=== PATIENT | male | born 1940 | race Caucasian/White ===

== ENCOUNTER 2019-08-04 10:19 | Emergency (ER) | payer MEDICARE ==
--- OUTSIDE RECORDS SUMMARY | 2019-08-04 10:34 | XMS REPORT | Continuity of Care Document ---
:1940 External Reference #:[id number] Author Name Sara Ewing MD (transmitted by agent of provider Yani Argueta) Address [address], [address] [place] [address] Care Team Providers Name Role Phone Chelsea Altamirano FNP - Nurse Care Team Information Director Translation [phone] Practitioner Problems Active Problems Provider Date Acute subendocardial infarction Iban Floyd MD, [facility], Onset: 01/17/2016 [facility] Dyspnea Sara Ewing MD Onset: 02/16/2016 Disturbance in sleep behavior Sara Ewing MD Onset: 02/16/2016 Other nonspecific abnormal finding of Sara Ewing MD Onset: 02/16/2016 lung field Post-inflammatory pulmonary fibrosis Sara Ewing MD Onset: 04/18/2016 Obstructive sleep apnea syndrome Sara Ewing MD Onset: 04/18/2016 Old myocardial infarction Iban Floyd MD, [facility], Onset: 01/28/2018 [facility] Social History Type Date Description Comments Sex Unknown Tobacco Use Start: Unknown End: Former Cigarette Smoker Unknown Smoking Status Reviewed: 07/08/19 Former Cigarette Smoker ETOH Use Rarely consumes alcohol Tobacco Use Start: Unknown End: Patient is a former quit in 2000, Unknown smoker started smoking around age 17yrs about 1PPD Recreational Drug Use Denies Drug Use Exercise Type/Frequency Exercises regularly Work display department manager Allergies, Adverse Reactions, Alerts Description No Known Drug Allergies Medications Active Medications SIG Qnty Indications Ordering Date Provider Prednisone 1 by mouth every 30tabs J84.10 Sara Ewing, 05/07/2019 10mg day Tablets Oxygen Concentrator Pls provide pt with Sara Ewing, 03/18/2019 back up battery for poc. His current battery doesnot last Oxymask Please provide pt J44.9 Sara Kaylin, 10/25/2018 with oxymask to be MD used with o2 source Ofev take 1 capsule by 60caps J84.10 Sara Ewing, 03/21/2018 100mg Capsules mouth twice daily MD 12 hours apart with food. Sodium Chloride use one vial in 240units J47.9 Sara Ewing, 03/21/2018 3% nebulizer every 12 MD Nebulizer hours Oxygen please use o2 at 1units R09.02 Sara Ewing, 03/21/2018 Misc 3l/min during MD exertion, pls provide pt with portable o2 concentrator Spiriva Respimat 1 puff inhaled 12gm J44.9 Lona Virk, 02/11/2018 daily N.P. 2.5mcg/Act Aerosol Ventolin HFA inhale two puffs by 54gm Other Ordering 02/11/2018 mouth every 6 hours Provider 108(90Base) mcg/Act Aerosol Mucinex take 1 tab by mouth 180tabs J44.9 Lona Virk, 02/11/2018 600mg Tablets twice a day N.P. ER 12HR Fluticasone 2 sprays each 32gm G47.33 Sara Ewing, 05/30/2016 Propionate nostril prn 50mcg/Act Suspension Vortex Valved use as instructed 1units Sara Ewing, 05/02/2016 Holding Chamber MD Device Symbicort 2 puff twice a day 20.7gm Sara Ewing, 05/02/2016 80-4.5mcg/Act Aerosol Flutter use as instructed 1[facility] J84.10 Sara Ewing, 04/18/2016 Device twice a day Nitrostat one sl q5min up to Unknown 0.4mg 3 doses as needed Tablets Sub Aspirin 1 by mouth every Unknown 81mg Tablets day Cozaar 1 by mouth every Unknown 50mg Tablets day Omeprazole 1 by mouth every Unknown 20mg day prn Capsules DR Levothyroxine Sodium 1 by mouth every Unknown day 112mcg Tablets Zyrtec Allergy 1 by mouth every Unknown 10mg day Tablets Atorvastatin Calcium 1 by mouth every 90tabs Qutaybeh S. day Negrito Bartlett 80mg Tablets Metoprolol Succinate 1 by mouth every 90tabs Iban T. ER day MD Mariel, 50mg Tablets ER FAC, [facility] 24HR Aleve 1 by mouth twice a Unknown 220mg Tablets day as needed Medications Administered in Office Medication SIG Qnty Indications Ordering Provider Date Inj, Regadenoson, 0.1 MG Nicanor oSto, DO [facility] 02/09/2016 Injection Technetium TC 99M Nicanor Soto, DO [facility] 02/09/2016 Tetrofosmin, Per Unit Dose Up To 40 Millicuries Injection Immunizations Description No Information Available Vital Signs Date Vital Result Comment 07/08/2019 1:25pm Height 72 inches 6'0" Weight 184.00 lb Heart Rate 82 /min BP Systolic Sitting 122 mmHg BP Diastolic Sitting 60 mmHg Body Temperature 98.0 F O2 % BldC Oximetry 98 % BMI (Body Mass Index) 25.0 kg/m2 05/07/2019 10:54am Height 72 inches 6'0" Weight 186.00 lb Heart Rate 84 /min BP Systolic Sitting 100 mmHg Lue regular cuff BP Diastolic Sitting 60 mmHg Lue regular cuff Respiratory Rate 12 /min O2 % BldC Oximetry 85 % BMI (Body Mass Index) 25.2 kg/m2 Results Test Date Facility Test Result H/L Range Note Lupus Anticoagulant 05/07/2019 [facility] Prothrombin 11.6 sec [address] Time([place]) [place] [address] [phone] Lac Inr 1.1 Lac Aptt 29 sec 26 - 36 Lac DRVVT Screen Ratio 0.9 ratio 0.0 - 1.1 Lupus Anticoagulant Interpreta See Comment 2 CBC Auto 05/07/2019 [facility] White Blood 10.5 10^3/uL Normal 3.5-10.[address] [place] [address] [phone] Red Blood Count 5.59 10^6/uL High 4.18-5.48 Hemoglobin 17.0 g/dL Normal 14.0-18.0 Hematocrit 50 % Normal 42-52 Mean Corpuscular Volume 89 fL Normal 80-94 Mean Corpuscular Hemoglobin 30 pg Normal 27-31 Mean Corpuscular HGB Conc 34 g/dL Normal 31-36 Red Cell Distribution Width 15 % Normal 10-15 Abs Neutrophils 7.4 10^3/uL Normal 1.5-7.7 Abs Lymphocytes 1.8 10^3/uL Normal 1.0-4.8 Abs Monocytes 0.8 10^3/uL Normal 0-0.8 Abs Eosinophils 0.4 10^3/uL Normal 0-0.6 Abs Basophils 0.0 10^3/uL Normal 0-0.2 Abs Nucleated RBC 0.0 10^3/uL Granulocyte % 71.0 % Lymphocyte % 17.3 % Monocyte % 7.8 % Eosinophil % 3.5 % Basophil % 0.4 % Nucleated Red Blood Cells % 0.1 Platelet Count 115 10^3/uL Low 150-450 Mean Platelet Volume 9.6 fL Normal 7.4-10.4 Neutrophil Cytoplasmic 05/07/2019 [facility] C-Anca Negative Negative AB [address] [place] [address] [phone] P-Anca Negative Negative 3 Laboratory test 05/07/2019 [facility] Anti Nuclear 1.1 U Abnormal 4 finding [address] [facility] [place] [address] [phone] Cyclic Citrullinated Pep Igg <15.6 U 5 C Reactive Protein 2.32 mg/L Normal <8.01 Rheumatoid Factor 13 IU/mL Normal <15 Order 05/07/2019 [employer] In-House 6 Minute Walk <pending> Lipid Panel - JFM 03/04/2019 [facility] Creatine 36 U/L Normal 10-223 6 [address] [facility] Kinase(CK) [place] [address] [phone] Comp Metabolic 03/04/2019 [facility] Sodium 140 mmol/L Normal 135-145 Panel [address] [place] [address] [phone] Potassium 3.9 mmol/L Normal 3.5-5.0 Chloride 106 mmol/L Normal 101-111 Co2 Carbon Dioxide 28 mmol/L Normal 22-32 Anion Gap 6 mmol/L Normal 2-11 Glucose 88 mg/dL Normal 70-100 Blood Urea Nitrogen 10 mg/dL Normal 6-24 Creatinine 0.83 mg/dL Normal 0.67-1.17 BUN/Creatinine Ratio 12.0 Normal 8-20 Calcium 9.1 mg/dL Normal 8.6-10.3 Total Protein 6.4 g/dL Normal 6.4-8.9 Albumin 3.8 g/dL Normal 3.2-5.2 Globulin 2.6 g/dL Normal 2-4 Albumin/Globulin Ratio 1.5 Normal 1-3 Total Bilirubin 1.80 mg/dL High 0.2-1.0 Alkaline Phosphatase 71 U/L Normal 34-104 Alt 26 U/L Normal 7-52 Ast 20 U/L Normal 13-39 Egfr Non- 89.8 >60 Egfr 108.7 >60 7 Lipid Profile 03/04/2019 [facility] Triglycerides 53 mg/dL 8 (Trig/Chol/HDL) [address] [place] [address] [phone] Cholesterol 121 mg/dL 9 HDL Cholesterol 42.1 mg/dL 10 LDL Cholesterol 68 mg/dL 11 1 REFERENCE VALUE 10.3 - 12.8 2 No evidence of a lupus-like anticoagulant based on results of Prothrombin Time (PT), Activated Partial Thromboplastin Time (APTT), and Dilute Russells Viper Venom Time (DRVVT). Interpretation not reviewed by physician. Test Performed by: [facility] - [address] [address] 3 Negative for cANCA and pANCA patterns by immunofluorescence. ADDITIONAL INFORMATION This test was developed and its performance characteristics determined by [facility] in a manner consistent with CLIA requirements. This test has not been cleared or approved by the U.S. Food and Drug Administration. Test Performed by: [facility] [employer] [facility] [address] [place] [address] 4 Interpretation: Weak Positive (1.1-2.9) REFERENCE VALUE <=1.0 (Negative) Test Performed by: [facility] [employer] [facility] [address] [place] [address] 5 REFERENCE VALUE <20.0 (Negative) Test Performed by: [facility] - [facility] [address] [place] [address] 6 FASTING 7 Because ethnic data is not always readily available, this report includes an eGFR for both -Americans and non- Americans. The National Kidney Disease Education Program (NKDEP) does not endorse the use of the MDRD equation for patients that are not between the ages of 18 and 70, are , have extremes of body size, muscle mass, or nutritional status, or are non- or non-. According to the National Kidney Foundation, irrespective of diagnosis, the stage of the disease is based on the level of kidney function: Stage Description GFR(mL/min/1.73 m(2)) 1 Kidney damage with normal or decreased GFR 90 2 Kidney damage with mild decrease in GFR 60-89 3 Moderate decrease in GFR 30-59 4 Severe decrease in GFR 15-29 5 Kidney failure <15 (or dialysis) 8 Desirable: <150 Borderline High: 150-199 High: 200-499 Very High: >500 9 Desirable: <200 Borderline High: 200-239 High: >239 10 Low: <40 Desirable: 40-60 High: >60 11 Desirable: <100 Near Optimal: 100-129 Borderline High: 130-159 High: 160-189 Very High: >189 Procedures Date Code Description Status 05/07/2019 16268 [facility] Measurement Heart Rate, Completed Oximetry 04/10/2019 69392 Diffusing Capacity Completed 04/10/2019 24818 Spirometry Incl Graphic Record Completed 03/03/2019 08202 Holter Monitor Review (24 hr)dr levy & interp only Completed 02/20/2019 97931 ECG Monitor/Recording W/Visual Superimposition Scanning Completed 02/17/2019 00486 ECHO Transthoracic, Real-Time 2D With Doppler And Color Completed Flow 02/17/2019 50892 ECHO Transthoracic, Real-Time 2D With Doppler And Color Completed Flow 02/12/2019 57686 Treadmill Interp/Report Only Completed 02/12/2019 19245 Stress Test Supervsn W/Out I/R Completed 02/03/2019 86483 EKG Tracing & Interpretation Completed Medical Devices Description No Information Available Encounters Type Date Location Provider Dx Diagnosis Office Visit 07/08/2019 [facility]ology [facility] Sara Kaylin, J84.10 Pulmonary 1:45p [facility] vince Cma unspecified J44.9 Chronic obstructive pulmonary disease, unspecified G47.33 Obstructive sleep apnea (adult) (pediatric) R09.02 Hypoxemia Office Visit 05/07/2019 11:15a Pulmonology And Sara R06.02 Shortness of [facility] Kaylin breath [employer] J84.10 Pulmonary fibrosis, unspecified J44.9 Chronic obstructive pulmonary disease, unspecified G47.33 Obstructive sleep apnea (adult) (pediatric) R09.02 Hypoxemia Office Visit 02/28/2019 1:00p [facility] Bing Alvarez J44.1 Chronic SHORTS SIFTER obstructive pulmonary disease w (acute) exacerbation 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 obstructive Hospitalists pulmonary disease w (acute) exacerbation J18.9 Pneumonia, unspecified organism J84.10 Pulmonary fibrosis, unspecified I25.10 Athscl heart disease of [place] coronary artery w/o ang pctrs E03.9 Hypothyroidism, unspecified [facility] Visit [facility] Chronic Assoc,sheryl Martinez M.D. obstructive Hospitalists pulmonary disease w (acute) exacerbation J84.10 Pulmonary fibrosis, unspecified I25.10 Athscl heart disease of [place] coronary artery w/o ang pctrs E03.9 Hypothyroidism, unspecified Office Visit 02/21/2019 [facility] Amanda J18.9 Pneumonia, 9:54a Assoc,pc Neela, SHORTS SIFTER unspecified Hospitalists organism J96.00 Acute respiratory failure, unsp w hypoxia or hypercapnia J44.9 Chronic obstructive pulmonary disease, unspecified J84.10 Pulmonary fibrosis, unspecified R74.0 Nonspec elev of levels of transamns & lactic acid dehydrgnse I25.10 Athscl heart disease of [place] coronary artery w/o ang pctrs I10 Essential (primary) hypertension E03.9 Hypothyroidism, unspecified K21.9 Gastro-esophageal reflux disease without esophagitis Office Visit 02/03/2019 2:40p Carson Carter J44.9 Chronic Cardiology Negrito Bartlett obstructive pulmonary disease, unspecified G47.33 Obstructive sleep apnea (adult) (pediatric) R06.02 Shortness of breath I25.2 Old myocardial infarction E78.5 Hyperlipidemia, unspecified R07.9 Chest pain, unspecified I77.819 Aortic ectasia, unspecified site R42 Dizziness and giddiness I25.10 Athscl heart disease of [place] coronary artery w/o ang pctrs I10 Essential (primary) hypertension R94.31 Abnormal electrocardiogram [ECG] [EKG] Assessments Date Code Description Provider 07/08/2019 J84.10 Pulmonary fibrosis, unspecified Sara Ewing MD 07/08/2019 J44.9 Chronic obstructive pulmonary disease, Sara Ewing MD unspecified 07/08/2019 G47.33 Obstructive sleep apnea (adult) Sara Ewing MD (pediatric) 07/08/2019 R09.02 Hypoxemia Sara Ewing MD 05/07/2019 R06.02 Shortness of breath Sara Ewing MD 05/07/2019 J84.10 Pulmonary fibrosis, unspecified Sara Ewing MD 05/07/2019 J44.9 Chronic obstructive pulmonary disease, Sara Ewing MD unspecified 05/07/2019 G47.33 Obstructive sleep apnea (adult) Sara Ewing MD (pediatric) 05/07/2019 R09.02 Hypoxemia Sara Ewing MD 04/10/2019 J44.9 Chronic obstructive pulmonary disease, Sara Ewing MD unspecified 03/03/2019 R42 Dizziness and giddiness Mynor Lemons M.D. 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 w (acute) exacerbation 02/23/2019 J18.9 Pneumonia, unspecified organism Stevie Martinez M.D. 02/23/2019 J84.10 Pulmonary fibrosis, unspecified Stevie Martinez M.D. 02/23/2019 I25.10 Athscl heart disease of [place] Stevie Martinez M.D. coronary artery w/o ang pctrs 02/23/2019 E03.9 Hypothyroidism, unspecjaki Martinez M.D. 02/22/2019 J44.1 Chronic obstructive pulmonary disease Stevie Martinez M.D. w (acute) exacerbation 02/22/2019 J84.10 Pulmonary fibrosis, jenny Martinez M.D. 02/22/2019 I25.10 Athscl heart disease of [place] Stevie Martinez M.D. coronary artery w/o ang pctrs 02/22/2019 E03.9 Hypothyroidism, unspecjaki Martinez M.D. 02/21/2019 J18.9 Pneumonia, unspecified organism Amanda Keita, SHORTS SIFTER 02/21/2019 J96.00 Acute respiratory failure, unsp w Amanda Keita NP hypoxia or hypercapnia 02/21/2019 J44.9 Chronic obstructive pulmonary disease, Amanda Keita, [place] [employer] unspecified 02/21/2019 J84.10 Pulmonary fibrosis, unspecified Amanda Keita, [employer] 02/21/2019 R74.0 Nonspec elev of levels of transamns & Amanda Keita NP lactic acid dehydrgnse 02/21/2019 I25.10 Athscl heart disease of [place] Amanda Keita, THERESE coronary artery w/o ang pctrs 02/21/2019 I10 Essential (primary) hypertension Amanda Keita NP 02/21/2019 E03.9 Hypothyroidism, unspecified Amanda Keita, SHORTS SIFTER 02/21/2019 K21.9 Gastro-esophageal reflux disease Amanda Keita, SHORTS [employer]IFTER without esophagitis 02/20/2019 R42 Dizziness and giddiness Nurse Visit IC 02/20/2019 R42 Dizziness and giddiness Jada Bartlett M.D. 02/17/2019 R06.02 Shortness of breath Jada Bartlett M.D. 02/17/2019 R06.02 Shortness of breath [facility] 02/17/2019 G47.33 Obstructive sleep apnea (adult) [facility] Schedule (pediatric) 02/17/2019 I25.2 Old myocardial infarction [facility] Schedule 02/17/2019 R07.9 Chest pain, unspecified [facility] Schedule 02/12/2019 R06.02 Shortness of breath Jada Bartlett M.D. 02/03/2019 J44.9 Chronic obstructive pulmonary disease, Jada Bartlett M.D. unspecified 02/03/2019 G47.33 Obstructive sleep apnea (adult) Jada Bartlett M.D. (pediatric) 02/03/2019 R06.02 Shortness of breath Jada Bartlett M.D. 02/03/2019 I25.2 Old myocardial infarction Jada Bartlett M.D. 02/03/2019 E78.5 Hyperlipidemia, unspecified Jada Bartlett M.D. 02/03/2019 R07.9 Chest pain, unspecified Jada Bartlett M.D. 02/03/2019 I77.819 Aortic ectasia, unspecified site Jada Bartlett M.D. 02/03/2019 R42 Dizziness and giddiness Jada Bartlett M.D. 02/03/2019 I25.10 Atherosclerotic heart disease of Jada Bartlett M.D. [place] coronary artery with 02/03/2019 I10 Essential (primary) hypertension Jada Bartlett M.D. 02/03/2019 R94.31 Abnormal electrocardiogram [ECG] [EKG] Jada Bartlett M.D. Plan of Treatment Future Appointment(s):09/09/2019 1:45 pm - Sara Ewing MD at [facility]08/15/2019 11:00 am - Andrew Torre M.D. at [facility]07/08/2019 - Sara Ewing MDJ84.10 Pulmonary fibrosis, unspecifiedFollow up:2 uopikjW93.9 Chronic obstructive pulmonary disease, mhqezrhekhiM27.33 Obstructive sleep apnea (adult) (pediatric)R09.02 Hypoxemia Functional Status Description No Information Available Mental Status Description No Information Available Referrals Refer to Reason for Referral Status Appt Date Andrew Torre MD Scheduled 08/15/2019 [address] [place], [place] [address] [phone]
--- NOTE | 2019-08-04 11:00 | ED ---
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 Patient additionally complains of worsening shortness of breath. Patient states he is able to ambulate but not far distances due to shortness of breath. Patient denies nausea. Patient reports congestion and productive cough. Patient additionally complains of light headedness x3-4 days. The patient rates the pain 0/10 in severity. Symptoms aggravated by sitting up, moving around, lying down. Symptoms alleviated by nothing. Patient states he has hx COPD for which he is on 4 L O2 and hx vertigo, last time being a couple years ago which was relieved with medication per patient. - History Of Current Complaint Chief Complaint: EDShortnessOfBreath Stated Complaint: SHORT OF BREATH Time Seen by Provider: 08/04/19 10:47 Hx Obtained From: Patient Onset/Duration: Still Present Timing: Constant Severity Currently: None Aggravating Factor(s): Other - sitting up, moving around, lying down Alleviating Factor(s): Nothing Associated Signs And Symptoms: Positive: Negative - nausea, Other: - Shortness of breath, able to ambulate, congestion, productive cough, light headedness - Allergies/Home Medications Allergies/Adverse Reactions: Allergies Allergy/AdvReac Type Severity Reaction Status Date / Time No Known Allergies Allergy Verified 08/04/19 10:26 Home Medications: Home Medications Cetirizine* [ZyrTEC 10 MG TAB*] 10 mg PO DAILY 08/04/19 [History Confirmed 08/04] Ergocalciferol (Vitamin D2) [Vitamin D2] 50,000 unit PO WEEKLY 08/04/19 [ History Confirmed 08/04/19] Naproxen Sodium [Aleve] 220 mg PO BID PRN 08/04/19 [History Confirmed 08/04/19] PMH/Surg Hx/FS Hx/Imm Hx Endocrine/Hematology History: Reports: Hx Anticoagulant Therapy - plavix, Hx Systemic Lupus Erythematosus, Hx Thyroid Disease, Other Endocrine/Hematological Disorders Denies: Hx Blood Disorders, Hx Blood Transfusions, Hx Bone Marrow Disease, Hx Diabetes, Hx Sickle Cell Disease, Hx Anemia, Hx Unexplained Bleeding Cardiovascular History: Reports: Hx Angina, Hx Cardiomegaly, Hx Coronary Artery Disease, Hx Hypercholesterolemia, Hx Hypertension, Hx Myocardial Infarction, Hx Rheumatic Fever, Hx Syncope - "virtigo" Denies: Hx Aneurysm, Hx Angioplasty, Hx Auto Implanted Cardiovert Defib, Hx Cardiac Arrest, Hx Congenital Heart Disease, Hx Congestive Heart Failure, Hx Hypotension, Hx Pacemaker/ICD, Hx Peripheral Vascular Disease, Hx Valvular Heart Disease, Other Cardiovascular Problems/Disorders Respiratory History: Reports: Hx Asthma, Hx Chronic Obstructive Pulmonary Disease (COPD), Hx Pneumonia, Hx Pulmonary Edema, Hx Seasonal Allergies, Other Respiratory Problems/Disorders - pulmonary fibrosis Denies: Hx Sleep Apnea GI History: Reports: Hx Gastroesophageal Reflux Disease, Hx Obstructive Bowel Denies: Hx Cirrhosis, Hx Crohn's Disease, Hx Diverticulosis, Hx Gall Bladder Disease, Hx Gastrointestinal Bleed, Hx Hiatal Hernia, Hx Irritable Bowel, Hx Jaundice, Hx Ileostomy, Hx Pyloric Stenosis, Hx Ulcer, Other GI Disorders History: Denies: Hx Acute Renal Failure, Hx Benign Prostatic Hyperplasia, Hx Chronic Renal Failure, Hx Dialysis, Hx Kidney Infection, Hx Kidney Stones Musculoskeletal History: Reports: Hx Arthritis, Hx Back Problems, Hx Bursitis Denies: Hx Congenital Bone Abnormalities, Hx Fibromyalgia, Hx Gout, Hx Orthopedic Injury, Hx Osteoporosis, Hx Scoliosis, Hx Tendonitis, Other Musculoskeletal History Sensory History: Reports: Hx Contacts or Glasses, Hx Deafness, Hx Hearing Aid, Hx Hearing Problem - can't hear TV Denies: Hx Cataracts, Hx Eye Injury, Hx Eye Prosthesis, Hx Glaucoma, Hx Legally Blind, Hx Macular Degeneration, Hx Vision Problem, Other Sensory Impairments Opthamlomology History: Reports: Hx Contacts or Glasses Denies: Hx Cataracts, Hx Eye Injury, Hx Eye Prosthesis, Hx Glaucoma, Hx Legally Blind, Hx Macular Degeneration, Hx Vision Problem, Other Sensory Impairments Neurological History: Denies: Hx Dementia, Hx Transient Ischemic Attacks (TIA) Psychiatric History: Reports: Hx Depression Denies: Hx Anxiety, Hx Attention Deficit Hyperactivity Disorder, Hx Eating Disorder, Hx Panic Disorder, Hx Post Traumatic Stress Disorder, Hx Inpatient Treatment, Hx Community Mental Health Tx, Hx Schizophrenia, Hx Bipolar Disorder , Hx Suicide Attempt, Hx of Violent Episodes Against Others, Hx Substance Abuse , Other Psychiatric Issues/Disorders - Cancer History Hx Chemotherapy: No Hx Radiation Therapy: No Hx Palliative Cancer Treatment: No - Surgical History Surgery Procedure, Year, and Place: appy,hemoroidectomy Hx Anesthesia Reactions: No Infectious Disease History: No Infectious Disease History: Denies: Hx Clostridium Difficile, Hx Hepatitis, Hx of Known/Suspected MRSA, Hx Shingles, Hx Tuberculosis, Hx Known/Suspected VRE, Hx Known/Suspected VRSA, Traveled Outside the [place] in Last 30 Days - Family History Known Family History: Positive: Cardiac Disease - [place] - father 56 y/o - Social History Alcohol Use: Rare Alcohol Amount: maybe once a month if that Hx Substance Use: No Substance Use Type: Reports: None Hx Tobacco Use: Yes Smoking Status (MU): Former Smoker Review of Systems Positive: Other - congestion Positive: Shortness Of Breath, Cough Negative: Nausea Positive: Other - Able to ambulate Neurological: Other - Dizziness, light headedness All Other Systems Reviewed And Are Negative: Yes Physical Exam - Summary Physical Exam Summary: Appearance: The patient is well-nourished in no acute distress and in no acute pain. Skin: The skin is warm and dry, and skin color reflects adequate perfusion. HEENT: The head is normocephalic and atraumatic. The pupils are equal and reactive. The conjunctivae are clear and without drainage. Nares are patent and without drainage. Mouth reveals moist mucous membranes, and the throat is without erythema and exudate. The external ears are intact. The ear canals are patent and without drainage. The tympanic membranes are intact. Neck: The neck is supple with full range of motion and non-tender. There are no carotid bruits. There is no neck vein distension. Respiratory: Chest is non-tender. There are crackles in the bilateral bases Cardiovascular: Heart is regular rate and rhythm. There is no murmur or rub auscultated. There is no peripheral edema and pulses are symmetrical and equal. Abdomen: The abdomen is soft and non-tender. There are normal bowel sounds heard in all four quadrants and there is no organomegaly palpated. Musculoskeletal: There is no back tenderness noted. Extremities are non-tender with full range of motion. There is good capillary refill. There is no peripheral edema or calf tenderness elicited. Neurological: Patient is alert and oriented to person, place and time. The patient has symmetrical motor strength in all four extremities. Cranial nerves are grossly intact. Deep tendon reflexes are symmetrical and equal in all four extremities. Psychiatric: The patient has an appropriate affect and does not exhibit any anxiety or depression. GCS: 15 Triage Information Reviewed: Yes Vital Signs On Initial Exam: Initial Vitals Temp Pulse Resp BP Pulse Ox 97.3 F 70 20 138/75 92 08/04/19 10:23 08/04/19 10:23 08/04/19 10:23 08/04/19 10:23 08/04/19 10:23 Vital Signs Reviewed: Yes Diagnostics - Vital Signs Vital Signs Temp Pulse Resp BP Pulse Ox 08/04/19 10:23 97.3 F 70 20 138/75 92 - Laboratory Result Diagrams: 08/04/19 11:33 08/04/19 11:33 Lab Statement: Any lab studies that have been ordered have been reviewed, and results considered in the medical decision making process. - Radiology CXR Radiology Interpretation Completed By: Radiologist Summary of Radiographic Findings: STABLE PULMONARY FIBROTIC CHANGES. NO ACTIVE CARDIOPULMONARY DISEASE. ED physician has reviewed this report. - CT CT Brain CT Interpretation Completed By: Radiologist Summary of CT Findings: NO EVIDENCE FOR ACUTE INTRACRANIAL ABNORMALITY. ED physician has reviewed this report. - EKG 1119 Cardiac Rate: Bradycardia - 52 BPM EKG Rhythm: Sinus Bradycardia Re-Evaluation - Re-Evaluation First Eval Re-Evaluation Time: 15:50 Comment: Dr. Gonzales in ED to see patient Dizzy Course/Dx - Course Course Of Treatment: Mr. Wade presented complaining of some mild dizziness for about the past week. Also some congestion and mild cough. He had some shortness of breath when he walks too far. Is not that unusual for him however as he has some COPD. He was nontoxic in appearance is stable vitals. His neurological exam was unremarkable for me. CT brain, EKG, chest x-ray and labs are unremarkable. Dr. Gonzales saw him in consultation because of dizziness and felt that it was likely peripheral. I think he is got a viral syndrome and that he is nontoxic at this point. He was given a liter of fluid here and did fill improved after that. - Diagnoses Provider Diagnoses: Viral syndrome - Provider Notifications Discussed Care Of Patient With: Alvino Gonzales Time Discussed With Above Provider: 13:43 Instructed by Provider To: Other - Dr. Gonzales, neurology, agrees to come see patient in ED. He recommends giving IV fluids and discharging patient. Discharge ED - Sign-Out/Discharge Documenting (check all that apply): Patient Departure - Discharge Patient Received Moderate/Deep Sedation with Procedure: No - Discharge Plan Condition: Stable Disposition: HOME Patient Education Materials: Viral Syndrome (ED) Referrals: Chelsea Jones RN [Primary Care Provider] - 2 Days Additional Instructions: Follow up with your primary care provider in 2-3 days. Return to the Emergency Department for new or worsening symptoms. - Billing Disposition and Condition Condition: STABLE Disposition: Home - Attestation Statements Document Initiated by Todde: Yes Documenting Scribe: Anna Gant Provider For Whom Emaibe is Documenting (Include Credential): Leodan Parikh MD Scribe Attestation: IAnna, scribed for Leodan Parikh MD on 08/04/19 at 2004. Scribe Documentation Reviewed: Yes Provider Attestation: The documentation as recorded by the Anna hughes accurately reflects the service I personally performed and the decisions made by me, Leodan Parikh MD Status of Scribe Document: Viewed
[2019-08-04 11:43] LABS: ABS Basophils 0.1 10^3/ul (0-0.2); ABS Eosinophils 0.2 10^3/ul (0-0.6); ABS Lymphocytes 1.7 10^3/ul (1.0-4.8); ABS Monocytes 0.7 10^3/ul (0-0.8); ABS Neutrophils 5.7 10^3/ul (1.5-7.7); Hematocrit 48 % (42-52); Hemoglobin 16.5 g/dL (14.0-18.0); Lymphocyte % 20.2 %; Mean Corpuscular HGB Conc 34 g/dL (31-36); Mean Corpuscular Hemoglobin 31 pg (27-31); Mean Corpuscular Volume 89 fL (80-94); Mean Platelet Volume 8.6 fL (7.4-10.4); Nucleated Red Blood Cells % 0.1; Platelet Count 116 10^3/uL (150-450); Red Blood Count 5.41 10^6 /uL (4.18-5.48); Red Cell Distribution Width 15 % (10-15); White Blood Count 8.4 10^3/uL (3.5-10.8)
[2019-08-04 11:57] LABS: Albumin 3.7 g/dL (3.2-5.2); Calcium 9.2 mg/dL (8.6-10.3); Potassium 4.2 mmol/L (3.5-5.0); Total Bilirubin 1.6 mg/dL (0.2-1.0)
[2019-08-04 12:03] LABS: Albumin/Globulin Ratio 1.6 (1-3); BUN/Creatinine Ratio 13.8 (8-20); C Reactive Protein 4.63 mg/L (<8.01); EGFR Non-African American 85.1 (>60); Globulin 2.3 g/dL (2-4); INR 0.98 (0.82-1.09)
[2019-08-04] MEDS ORDERED: NS 0.9% 1000 ML** 1,000 ML IV ONE (16:04)
--- NOTE | 2019-08-04 18:15 | CONS ---
NEUROLOGY CONSULTATION NOTE: DATE OF CONSULT: 08/04/19 - EMERGENCY DEPT CONSULTING PROVIDER: Leodan Parikh MD REASON FOR CONSULT: Dizziness. CHIEF COMPLAINT: Dizziness. HISTORY OF PRESENT ILLNESS: Mr. Mike Wade is a 78-year-old man with history of asthma/COPD, pulmonary fibrosis, on 4 L nasal cannula 24 hours, who presented with intermittent episodes of both vertigo and lightheadedness. The patient stated that over the last 2 weeks, he has had 2 episodes where he moves his head towards one side and develops a 10-second interval of dizziness. The dizziness was described as vertigo. Again, the vertigo would brent spontaneously. When he stations his head to primary gaze, the symptoms resolve. He has chronic hearing loss and has bilateral hearing aids. He denied any tinnitus. He has been feeling ill the last few weeks with upper respiratory tract infection, rhinorrhea, sinus congestion, and generalized fatigue. The patient also complains of symptoms of lightheadedness. He states that when he makes any certain quick positioning such as sitting up quickly to go to the bathroom in the middle of the night, he becomes lightheaded. This is an ongoing phenomenon and he has experienced this a few times a day. First time he noticed these symptoms were approximately 2 weeks ago. The lightheadedness would last for approximately a few seconds and resolve when he rests. He tries to get up slowly to ameliorate some of the lightheadedness. He denied any chest pain. He is chronically short of breath and is on oxygen therapy. He denied any focal weakness or paresthesias. He denied any headaches, visual disturbance, swallowing difficulty, speech impairment, or impairment in his bowel or bladder function. PAST MEDICAL HISTORY: Asthma/COPD, environmental exposure causing respiratory insufficiency, dyslipidemia, hypertension, hypothyroidism, GERD, obstructive sleep apnea, pulmonary fibrosis, coronary artery disease with history of drug- eluting stents, thrombocytopenia. PAST SURGICAL HISTORY: Appendectomy and cardiac catheterization. MEDICATIONS: 1. Losartan 50 mg p.o. daily. 2. Albuterol 2 puffs inhaled every 6 hours. 3. Symbicort 2 puffs inhaled b.i.d. 4. Metoprolol 50 mg p.o. daily. 5. Nitroglycerin 0.4 mg every 5 minutes as needed. 6. Atorvastatin 80 mg p.o. daily. 7. Guaifenesin 600 mg p.o. b.i.d. 8. Fluticasone 2 sprays both nares daily. 9. Omeprazole 20 mg p.o. daily. 10. Levothyroxine 112 mcg p.o. daily. 11. Aspirin 81 mg p.o. daily. 12. Prednisone 10 mg p.o. daily. 13. Naproxen 220 mg p.o. b.i.d. 14. Cetirizine 10 mg p.o. daily. 15. Vitamin D supplements. ALLERGIES: No known drug allergies. FAMILY HISTORY: The patient denied any family history of stroke or seizures. SOCIAL HISTORY: The patient lives with his spouse, who unfortunately just had a [id number] amputation. He quit smoking 18 years ago. He is retired as a construction safety consultant. He denied any alcohol use. REVIEW OF SYSTEMS: A 14-point review of systems was obtained and otherwise negative except for what is mentioned in the HPI. PHYSICAL EXAM: Vitals: Temperature of 97.3, heart rate of 56, respiratory rate of 15, oxygen saturation of 99%, blood pressure of 126/81, orthostatic blood pressures were obtained at bedside and are negative. His systolic blood pressure dropped from 146 to 130. He did develop lightheadedness, lasting for 3 -5 seconds. General: Well-nourished, well-developed man, who is dependent on oxygen. Head: Atraumatic, normocephalic without any obvious abnormality. Eyes : Conjunctivae/corneas are clear. Neck is supple and symmetric with no carotid bruit. Cardiovascular: Regular rate and rhythm, with normal S1 and S2. Pulmonary: Diminished lung sounds throughout. No crackles or rhonchi. Extremities: Normal range of motion with no cyanosis or edema. No hammertoes or high arches. Skin: No skin lesions or lacerations. Psych: Affect is broad , normal mood. Neurological Examination: Mental Status: Awake, alert, oriented to person, place, time, and general circumstance. Speech and language including expression, comprehension, and repetition were assessed and found to be normal. Cranial Nerves: Pupil equal, round, reactive to light, extraocular muscles are intact. Normal sensation throughout the face. No facial asymmetry. Tongue is symmetric and midline with no atrophy or fasciculation. Motor Examination: 5/5 strength in the upper and lower extremities. Normal tone throughout. Reflexes 2+ in the upper and lower extremities, 0 at the ankles bilaterally. Sensation: Normal sensation to light touch throughout. Vibration is intact at the great toes. Normal proprioception. Coordination: Normal [id number]-[id number] and sxgf-fg-[id number] testing bilaterally. Gait: Normal stance and gait. No ataxia. Negative HINT exam. IMAGING, LABORATORY AND OTHER DIAGNOSTIC TESTING: WBC of 8.4, hemoglobin of 16.5, hematocrit of 48, platelet count of 116. INR is 0.98. Sodium of 141, potassium of 4.2, chloride of 107. BUN of 12, creatinine 0.87. Calcium 9.2. C -reactive protein 4.63. CT head without contrast was personally reviewed. There was no comparison from today's study. It was reported that there was no evidence for intracranial abnormality. There appears to be a small subdural hygroma adjacent to the cerebellar hemisphere. I was unable to appreciate this finding. However, there is a small hypodensity that looks chronic in the right basal ganglia which is consistent with a previous lacunar infarction. ASSESSMENT AND RECOMMENDATIONS: Mr. Mike Wade is a chronically ill 78-year- old man with respiratory insufficiency, on oxygen therapy, who presents with a transient episode of vertigo and lightheadedness. On examination, the patient has no nystagmus and negative HINT examination and no symptoms of vertigo at this time. The last bout of vertigo was approximately 1 week ago. The symptom of vertigo lasted approximately 10 seconds and it was induced by head positioning. I suspect the vertigo is likely related to a labyrinthitis given that he is also complaining of viral illness with increased nasal congestion, rhinorrhea, and chills. He is afebrile at this time. Furthermore, I suspect his lightheadedness is related to either a medication effect or dehydration. His BUN and creatinine ratio is within normal range, but the patient was clearly symptomatic when he stood up upon checking the orthostatic vitals. I educated the patient regarding maneuvers to minimize any orthostatic related postural lightheadedness. He verbalized understanding. I do not suspect he had a stroke or transient ischemic attack given that his symptoms were transient at that time and he is asymptomatic without any vertigo today. Again, last vertigo was 1 week ago. It is unlikely that vertigo related to a vascular phenomena will last less than 10 seconds. I encouraged the patient to come back to the ED if his symptoms worsen or he develops new symptoms such as weakness, different type of dizziness, paresthesias, or word finding difficulty. I recommended the patient to receive a small dose of IV fluid. I would not recommend meclizine given his age and potential side effects and plus he is not complaining of vertigo at this time. I discussed these recommendations with Dr. Parikh who agreed with the plan. I offered to watch the patient overnight under the observation unit for 24-hour monitoring, but the patient would prefer to go home given that there is nothing that can be done for his symptoms. I encouraged the patient to continue Plavix and statin therapy given his history of an asymptomatic lacunar infarct. [id number]/[facility] #: [id number] [facility]ENTER[facility]ael
[2019-08-04 18:37] VITALS: BP 113/78
== END 2019-08-04 18:25 | disposition home or self-care (01) ==
LOC: ED 10:19
DX: B34.9 Viral infection, unspecified (principal); R42 Dizziness and giddiness; R06.02 Shortness of breath; Z79.01 Long term (current) use of anticoagulants; M32.9 Systemic lupus erythematosus, unspecified; E03.9 Hypothyroidism, unspecified; I25.10 Atherosclerotic heart disease of native coronary artery without angina pectoris; E78.00 Pure hypercholesterolemia, unspecified; I10 Essential (primary) hypertension; I25.2 Old myocardial infarction; K21.9 Gastro-esophageal reflux disease without esophagitis; Z87.891 Personal history of nicotine dependence; Z79.82 Long term (current) use of aspirin
CPT/HCPCS: 36415; 70450; 71046; 80053; 83605; 84484; 85025; 85610; 86140; 87040; 93005; 99284

== ENCOUNTER → 2019-09-15 | Day surgery (SDC) | payer MEDICARE ==
[~2019-09-15] MED LIST: Acetaminophen TAB* 325 MG PO PRN; Albuterol 2.5 MG/3 ML NEB.SOL* (0.083%) INH ONE; Benzocaine/Butamben/Tetracain (CETACAINE - SINGLE USE) 5 gm TOPICAL ONE; Buffered Lidocaine 1% SYRIN* 1 ML/SYRINGE INTRADERM ONE; Dexamethasone IV* 4 MG/ML 1 ML (4 MG) ONE; DiMENhydriNATE IV* 50 MG/ML VIAL IV PUSH PRN; Etomidate* 2 MG/ML 10 ML VIAL ONE; Ketorolac INJ* 30 MG/ML 1 ML VIAL IV PRN; Lactated Ringers 1000 ML Bag* 1,000 ML IV SCH; Lidocaine 1% INJ* 10 MG/ML 30 ML SDV ONE; Midazolam* 1 MG/ML 2 ML VIAL (2 MG) ONE; Naloxone* 0.4 MG/ML 1 ML VIAL IV PRN; Ondansetron INJ* 2 MG/ML VIAL ONE; Rocuronium* 10 MG/ML VIAL ONE; Succinylcholine* 20 MG/ML 10 ML VIAL ONE; Sugammadex * 500 MG/5 ML VIAL IV PUSH ONE; fentaNYL* 50 MCG/ML 2 ML VIAL (100 MCG VIAL) ONE
--- NOTE | 2019-09-15 13:46 | PN ---
Progress Note - Progress Note Date of Service: 09/15/19 - Pulmonary note Note: Pt scheduled for bronchoscopy and transbronchial biopsy today. Pt with ILD of unclear etiology. Pt noted to have positive inflammatory factors and reported h/o SLE/RA in the past. Pt didnot test positive on CTD recently. He has been seeing Dr Torre and was started on cellcept given progression. It is unclear at this point whether he has idiopathic fibrosis in which case current treatment would not work and he would need OFEV which was declined by insurance in the past as he was not proven to be IPF Pt offers no new complaints today. His BRYSON is stable .He has hypoxia that is imprved with O2 supplementation between 3-5L/min. Pt also with significant cardiac history. I have discussed with Bing Alvarez who saw him for f/u recently. He was considered to have moderate residual coronary disease however he was being medically managed. He had stress test in January 2019 that didnot reveal any inducable ischemia. His DAPT score was 1 with therapy. He is on ASA, Plavix, Lipitor and Toprol for greater than 112 months due to small stent diameter I have discussed with Bing Alvarez AGRICULTURAL ENGINEERING TECHNICIAN on 09/15/19 1:43. Given that pt is considered to have stable cardiac disease at this time and if he ended up with cath and stent placement in near future, will not be able to do procedure of transbronchial biopsy which would require holding of anti platelet agents. Putting risks associated with the procedure and benfits that are expected from the procedure, it was decided after much discussion with cardiology, anesthesiology and patient to proceed with procedure as planned.
--- NOTE | 2019-09-15 14:22 | CONSULT ---
Consult Consult: 78 yo gentleman with PMH significant for severe pulmonary HTN, [place] 2 yrs ago requiring 2 stents, and increasing oxygen requirements with exertion. H had chest pain eight months ago after which he went to get a stress test (01/2019) which was negative. He denies any chest pain since then but has had an increasing home O2 requirement. He says that if he stays still he is fine but is noticeably SOB with exertion. We had a thorough discussion as to whether to delay his transbronchial biopsy for cardiac clearance. If he were to merit a stent then it would at minimum be a 6 week delay if he were amenable to angioplasty. Dr. Ewing said that she understood this and that she did not feel , given his acute decompensation, that he would tolerate waiting. That and his recent negative stress test, I agree that his symptoms are most likely 2/2 his lung pathology. I discussed our thought process with the patient and his sister during consent. They said that they understood the risks and felt that it was appropriate to proceed.
--- NOTE | 2019-09-15 14:40 | BRIEFOPN ---
Brief Operative/Procedure Note - Operation Details Pre-Op Diagnosis: Pulmonary fibrosis, unspecified Post-Op Diagnosis: pulmonary fibrosis Procedures: Bronchoscopy with transbronchial biopsy Surgeon(s)/Proceduralists: neeru nelson Anesthesia: GA-Dr Mckee Estimated Blood Loss: Negligable Findings: Normal appearing airways, small amount of mucus Specimen(s)/Culture(s) Description: Transbronchial biopsies 5 passes from rt lower lobe, 2 passes from right upper lobe. Biopsy samples sent to [facility], 5 tissue samples sent to out side lab for pulmonary fibrosis dx Complications: None
[2019-09-15 17:08] VITALS: BP 108/66
--- NOTE | 2019-09-16 00:02 | PRO ---
BRONCHOSCOPY REPORT: DATE OF PROCEDURE: 09/15/19 PROCEDURE PERFORMED: Bronchoscopy with transbronchial biopsy. PRE-PROCEDURAL DIAGNOSIS: Pulmonary fibrosis, undifferentiated. ANESTHESIA: General anesthesia. ANESTHESIOLOGIST: Dr. Mckee. DESCRIPTION OF PROCEDURE: Informed consent was obtained from the patient prior to the procedure after all the risks and benefits were thoroughly explained. Appropriate time-out was agreed on by the attending staff prior to the procedure. The patient was intubated with a size 8.5 endotracheal tube. The flexible Olympus bronchoscope was subsequently inserted through the ET tube for airways inspection. No endobronchial lesions were noted. Thin secretions were noted and were suctioned out. ET tube positioning was confirmed to be 2 cm above the level of the neftali. Bronchoscope was then advanced into the right lower lobe, and transbronchial biopsies with 5 passes were obtained under fluoro guidance. Three of the samples were sent to an outside lab for evaluation of pulmonary fibrosis. Two samples were sent to [facility] lab. Two samples were obtained from the right upper lobe and were also sent to the outside lab. The patient tolerated the procedure well. The patient was extubated and seen in recovery in optimal condition. Postprocedure chest x-ray was ordered and is pending at the time of dictation. [id number]/[facility] #: [id number] MTDD
== END | disposition home or self-care (01) ==
LOC: OR 11:14
PROVIDERS: ATTEND Internal Medicine
DX: J84.10 Pulmonary fibrosis, unspecified (principal); I27.20 Pulmonary hypertension, unspecified; J44.9 Chronic obstructive pulmonary disease, unspecified; G47.33 Obstructive sleep apnea (adult) (pediatric); E03.9 Hypothyroidism, unspecified; M19.90 Unspecified osteoarthritis, unspecified site; I25.2 Old myocardial infarction; Z95.5 Presence of coronary angioplasty implant and graft; R06.02 Shortness of breath
CPT/HCPCS: 71045; 76000; 88305; J0330; J1100; J2250; J2405; J3010

== ENCOUNTER 2020-08-07 13:07 | Inpatient (IN) ==
[2020-08-07] MEDS ORDERED: NS 0.9% 1000 ml BAG 1,000 ML IV ONE ×2 (13:37→16:58)
[2020-08-07 14:39] LABS: ABS Eosinophils 0.1 10^3/ul (0-0.6); ABS Monocytes 0.9 10^3/ul (0-0.8); ABS Neutrophils 7.7 10^3/ul (1.5-7.7); Eosinophil % 1.2 %; Hematocrit 44 % (42-52); Hemoglobin 14.5 g/dL (14.0-18.0); Lymphocyte % 10.2 %; Mean Corpuscular HGB Conc 33 g/dL (31-36); Mean Corpuscular Hemoglobin 29 pg (27-31); Mean Corpuscular Volume 86 fL (80-94); Mean Platelet Volume 9.3 fL (7.4-10.4); Nucleated Red Blood Cells % 0.1; Platelet Count 118 10^3/uL (150-450); Red Blood Count 5.09 10^6 /uL (4.18-5.48); Red Cell Distribution Width 15 % (10-15); White Blood Count 9.7 10^3/uL (3.5-10.8)
[2020-08-07 14:57] LABS: Albumin 3.5 g/dL (3.2-5.2); Albumin/Globulin Ratio 1.1 (1-3); Calcium 11.2 mg/dL (8.6-10.3); EGFR African American 121.9 (>60); EGFR Non-African American 100.7 (>60); Globulin 3.2 g/dL (2-4); Potassium 3.7 mmol/L (3.5-5.0); Total Bilirubin 1.4 mg/dL (0.2-1.0); Total Protein 6.7 g/dL (6.4-8.9)
[2020-08-07 14:58] LABS: Troponin I 0.01 ng/mL (<0.03)
[2020-08-07] MEDS ORDERED: Iohexol 300 (CONTRAST) 10 ML SDV IV ONE (15:19)
[2020-08-07] MEDS ORDERED: Morphine 2 MG/ML SYRINGE IV PRN (18:33)
[2020-08-07] MEDS ORDERED: Al Hydrox/Mg Hydrox/Simet LIQ 30 ML UDC PO PRN (18:33)
[2020-08-07] MEDS ORDERED: Albuterol HFA INHALER 8 gm MDI INH PRN (18:38)
[2020-08-07] MEDS ORDERED: Albuterol/Ipratropium NEB.SOL (2.5/0.5 MG) 3 ML NEB.SOLN INH PRN (18:39)
[2020-08-07 20:28] LABS: Urine Appearance Cloudy; Urine Bilirubin Negative (Negative); Urine Blood Negative (Negative); Urine Color Yellow; Urine Glucose Negative (Negative); Urine Ketones Negative (Negative); Urine Nitrite Negative (Negative); Urine Protein Negative (Negative); Urine Specific Gravity 1.019 (1.010-1.030); Urine Urobilinogen Negative (Negative)
[2020-08-07] MEDS: Nystatin SUSPENSION 100,000 UNITS/ML UDC PO SCH (21:41)
[2020-08-07] MEDS: Pantoprazole VIAL 40 MG VIAL IV SCH (21:41)
[2020-08-07] MEDS: NS 0.9% 1000 ml BAG 1,000 ML IV SCH (21:41)
[2020-08-07] MEDS: Heparin 5000 UNITS/ML 1 mL VIAL SUBCUT SCH (21:41)
[2020-08-08] MEDS: Heparin 5000 UNITS/ML 1 mL VIAL SUBCUT SCH ×3 (05:47→21:33)
[2020-08-08 07:41] LABS: BUN/Creatinine Ratio 15.3 (8-20); Calcium 9.9 mg/dL (8.6-10.3); EGFR African American 127.8 (>60); EGFR Non-African American 105.6 (>60); Potassium 3.7 mmol/L (3.5-5.0)
[2020-08-08] MEDS: Nystatin SUSPENSION 100,000 UNITS/ML UDC PO SCH ×4 (08:24→21:33)
[2020-08-08] MEDS: Fluticasone NASAL SPRAY 50MCG 16 gm SPRAY BTL BOTH NARES SCH (08:25)
[2020-08-08] MEDS: Pantoprazole VIAL 40 MG VIAL IV SCH ×2 (08:25→19:44)
[2020-08-08] MEDS: NS 0.9% 1000 ml BAG 1,000 ML IV SCH (14:52)
[2020-08-09] MEDS: Heparin 5000 UNITS/ML 1 mL VIAL SUBCUT SCH (05:32)
[2020-08-09] MEDS: Fluticasone NASAL SPRAY 50MCG 16 gm SPRAY BTL BOTH NARES SCH (07:25)
[2020-08-09] MEDS: Pantoprazole VIAL 40 MG VIAL IV SCH (07:25)
[2020-08-09] MEDS: Nystatin SUSPENSION 100,000 UNITS/ML UDC PO SCH (07:25)
[2020-08-09 11:42] VITALS: BP 128/75
== END 2020-08-09 11:11 | disposition home or self-care (01) | DRG 392 ==
LOC: ED 13:07 → MED 21:16
PROVIDERS: ADMIT Internal Medicine; ATTEND Internal Medicine